=== PATIENT | female | born 1945 | race Asian ===

== ENCOUNTER 2022-03-14 14:31 | Emergency (ER) | payer MEDICARE, OTHER ==
[~2022-03-14] VITALS: Ht 149.9 cm; Wt 70.3 kg
[2022-03-14] MEDS ORDERED: ALBUTEROL/IPRATROPIUM 3 ML NEB NEB ONE (15:15)
[2022-03-14] MEDS ORDERED: DEXAMETHASONE 4 MG TAB PO SCH (15:15)
[2022-03-14] MEDS ORDERED: DEXAMETHASONE SOD PHOS INJ 4 MG/ML SDV ONE (15:18)
[2022-03-14] MEDS ORDERED: ALBUTEROL/IPRATROPIUM 3 ML NEB ONE (15:19)
[2022-03-14] MEDS ORDERED: LUMIGAN2.5 M1 OP (15:28)
[2022-03-14] MEDS ORDERED: VYTORIN 10-401 EACH PO (15:28)
[2022-03-14] MEDS ORDERED: ALBUTEROL1.25 MG/3 NEB (15:28)
[2022-03-14] MEDS ORDERED: PROAIR HFA INH8.5 GM (15:28)
[2022-03-14] MEDS ORDERED: ZITHROMAX500 MG PO (15:28)
[2022-03-14] MEDS ORDERED: CALCIUM CARBON500 MG PO (15:28)
[2022-03-14] MEDS ORDERED: GLIPIZIDE5 MG PO (15:28)
[2022-03-14] MEDS ORDERED: TIZANIDINE HCL4 M1 PO (15:28)
[2022-03-14] MEDS ORDERED: IPRAT-ALBUT 0.5-3 ML (15:28)
[2022-03-14] MEDS ORDERED: JARDIANCE25 MG (15:28)
[2022-03-14] MEDS ORDERED: DEXILANT60 MG (15:28)
[2022-03-14] MEDS ORDERED: ADVAIR 500/501 EA INH (15:28)
[2022-03-14] MEDS ORDERED: BUDESONIDE0.5 MG/2 M NEB (15:28)
[2022-03-14] MEDS ORDERED: HYDROCODONE-CH473 ML (15:28)
[2022-03-14] MEDS ORDERED: PREDNISONE20 MG PO (15:28)
[2022-03-14] MEDS ORDERED: FLONASE ALLERG9.9 ML INH (15:28)
[2022-03-14] MEDS ORDERED: MOBIC15 MG PO (15:28)
[2022-03-14] MEDS ORDERED: ULTRAM50 MG PO (15:28)
[2022-03-14] MEDS ORDERED: ZINC PO (15:28)
[2022-03-14] MEDS ORDERED: ZOLPIDEM TARTRAT5 MG PO (15:28)
[2022-03-14] MEDS ORDERED: CYCLOBENZAPRINE10 MG PO (15:28)
[2022-03-14] MEDS ORDERED: RHINASE LUBRICA30 ML (15:28)
[2022-03-14] MEDS ORDERED: LOSARTAN POTASS25 MG PO (15:28)
[2022-03-14] MEDS ORDERED: LINZESS290 MCG (15:28)
[2022-03-14] MEDS ORDERED: CELEXA10 MG PO (15:28)
[2022-03-14] MEDS ORDERED: METOCLOPRAMIDE H5 MG (15:28)
[2022-03-14] MEDS ORDERED: BROMFED DM COU118 ML PO (15:44)
== END 2022-03-14 15:57 | disposition home or self-care (01) ==
LOC: FSED 15:00
DX: R05.9 Cough, unspecified (principal); J06.9 Acute upper respiratory infection, unspecified; I10 Essential (primary) hypertension; E11.9 Type 2 diabetes mellitus without complications; E78.5 Hyperlipidemia, unspecified; K21.9 Gastro-esophageal reflux disease without esophagitis; M06.9 Rheumatoid arthritis, unspecified; F41.9 Anxiety disorder, unspecified; J45.909 Unspecified asthma, uncomplicated; M54.9 Dorsalgia, unspecified; G89.29 Other chronic pain
CPT/HCPCS: 71045; 81003; 87400; 99283; J1100

== ENCOUNTER 2024-03-21 09:59 | Emergency (ER) | payer MEDICARE, OTHER ==
[~2024-03-21] VITALS: Ht 149.9 cm; Wt 70.3 kg
[~2024-03-21 09:59] MED LIST: ADVAIR 500/501 EA INH; ALBUTEROL1.25 MG/3 NEB; BROMFED DM COU118 ML PO; BUDESONIDE0.5 MG/2 M NEB; CALCIUM CARBON500 MG PO; CELEXA10 MG PO; CYCLOBENZAPRINE10 MG PO; DEXILANT60 MG; FLONASE ALLERG9.9 ML INH; GLIPIZIDE5 MG PO; HYDROCODONE-CH473 ML; IPRAT-ALBUT 0.5-3 ML; JARDIANCE25 MG; LINZESS290 MCG; LOSARTAN POTASS25 MG PO; LUMIGAN2.5 M1 OP; METOCLOPRAMIDE H5 MG; MOBIC15 MG PO; PREDNISONE20 MG PO; PROAIR HFA INH8.5 GM; RHINASE LUBRICA30 ML; TIZANIDINE HCL4 M1 PO; ULTRAM50 MG PO; VYTORIN 10-401 EACH PO; ZINC PO; ZITHROMAX500 MG PO; ZOLPIDEM TARTRAT5 MG PO
[2024-03-21] MEDS ORDERED: CEFUROXIME500 MG PO (12:55)
[2024-03-21] MEDS ORDERED: VALTREX1000 MG PO (12:56)
[2024-03-21] MEDS ORDERED: LOTRIMIN AF12 GM TOP (12:58)
[2024-03-21] MEDS ORDERED: ZINC30 MG PO (13:00)
[2024-03-21 13:05] VITALS: BP 168/74; PULSE 62; RESP 16; O2SAT 99
[2024-03-21] MEDS ORDERED: FLUCONAZOLE150 MG PO (13:19)
== END 2024-03-21 13:14 | disposition home or self-care (01) ==
LOC: FSED 10:06
DX: R05.3 Chronic cough (principal); R30.0 Dysuria; B37.31 Acute candidiasis of vulva and vagina; D72.829 Elevated white blood cell count, unspecified; I10 Essential (primary) hypertension; E11.65 Type 2 diabetes mellitus with hyperglycemia; E78.5 Hyperlipidemia, unspecified; M06.9 Rheumatoid arthritis, unspecified; K12.1 Other forms of stomatitis; M54.9 Dorsalgia, unspecified; G89.29 Other chronic pain
CPT/HCPCS: 36415; 71046; 80053; 81003; 82553; 82948; 84484; 85025